=== PATIENT | female | born 1990 | race Caucasian/White ===

== ENCOUNTER 2021-11-19 07:52 | Outpatient (CLI) | payer BC, SELFPAY ==
[2021-11-19 08:07] LABS: Hematocrit 45.7 % (37.0-47.0); Mean Corpuscular HGB Conc 32.8 g/dl (32-36); Mean Corpuscular Hemoglobin 30.9 pg (26-34); Platelet Count Result 310 k/mm3 (150-375); Red Blood Count 4.86 M/mm3 (4.2-5.4); Red Cell Distribution Width 12.8 % (11.5-14.5); White Blood Count 10.4 K/mm3 (4.5-10.0)
== END 2021-11-19 07:53 | disposition home or self-care (01) ==
LOC: ANHLAB 07:56
PROVIDERS: Visit Provider Obstetrics & Gynecology Gynecologic Oncology
DX: Z30.2 Encounter for sterilization (principal)
CPT/HCPCS: 36415; 85027; 86850; 86900; 86901

== ENCOUNTER 2021-11-22 01:11 | Day surgery (SDC) | payer BC, SELFPAY ==
[2021-11-16 17:00] VITALS: BMI 31.1
--- NOTE | 2021-11-16 17:24 | PC.NURSE ---
Report to the Outpatient Waiting Room, entrance under the green pavilion located off [facility], at 1200 on 11-22-21. OR Time: 1400. - You and your visitor will be asked a series of questions to screen for COVID 19 for your protection. - Only one visitor is allowed at this time. - The patient visitor is requested to leave or wait in car when not with patient. - A mask is required within the hospital. Patients may have clear liquids (water, carbonated beverages, clear teas, apple juice) until 3 hours prior to surgery with a maximum of 20 ounces. 1100 - No food from midnight until time of surgery - Infants may have breast milk until 4 hours before surgery, infant formula 6 hours prior to surgery. - Children will be allowed to drink immediately following surgery. If applicable, please bring a bottle or sippy cup to assist with drinking. Juice, water, soda, and popsicles are readily available. For infants on formula, please bring formula the day of surgery. Pacifiers are allowed. Take the following medications with a SIP of water the morning of surgery: None Medications to discontinue per physician: vitamins and supplements Date to take last dose: 11-19-21 Please no make-up, nail lithuanian, hairspray, perfume, deodorant, or body powder the day of surgery. No jewelry (including any body piercings) or valuables the day of surgery, leave them at home. Please take a shower or bath the night before, or the morning of, surgery with an antibacterial soap. Wear comfortable, loose fitting clothing. Children are encouraged to wear pajamas. - Jewelry must be removed prior to entering the operating room. Rings and piercings that are not removed may be cut off. - The hospital will not accept responsibility for valuables. - Please leave all valuables, including medications, at home the day of surgery. If you are going home after surgery, a licensed yard driver must drive you home. - NO public transportation without another adult. - We recommend that an adult stay with you for 24 hours following discharge. - We also recommend that you do not drive, make important decision, drink alcoholic beverages, or take any drugs that were not prescribed by your health care provider for at least 24 hours after your discharge time. For Pediatric surgeries, we recommend two adults accompany the child home (only one inside the building at this time). Follow any additional instructions given to you from your surgeon. If you or anyone in your household have experienced Covid symptoms in the past week, please notify your surgeon or the nurse liaison at the phone number below for possible testing. Telephone instructions given to Elizabeth Rodriguez and asked if any additional questions and then verbalized understanding. Patient advised to call surgeon office or pre surgery nurse liaison [phone] if any additional questions.
[2021-11-22] VITALS (10 sets, daily range): BP systolic 108–135; BP diastolic 78–94; PULSE 50–83; RESP 16–22; TEMP 36.4–36.5; O2SAT 95–100
[2021-11-22] MEDS: GABAPENTIN 300 MG CAPSULE PO (11:46)
[2021-11-22] MEDS: ACETAMINOPHEN 500 MG TABLET 1000 MG PO (11:46)
--- NOTE | 2021-11-22 11:53 | PM.IMHP ---
H&P: HPI History of Present Illness Date/Time: 11/22/21 11:53 Chief Complaint: I'm here to have my tubes and Nexplanon removed Narrative: Patient here desiring permanent sterilization and removal of her Nexplanon Review of Systems Review of Systems: All systems reviewed & are unremarkable except as noted in HPI and below PMFSH Social History Social History Smoking packs per day: 0.5 Smoking cigarettes per day: 10.0 Years smoked: 10 Smoking pack-years: 5.00 Smoking status: Current every day smoker Tobacco type: cigarettes Second hand tobacco smoke exposure: No Alcohol intake: current Drinks per week: 3 Alcohol use details: beer Substance use: never Substance use type: does not use Living arrangements: with family Spiritual care concerns: No Meds Home Medications and Allergies Home Medications Medication Instructions Recorded Confirmed Type cholecalciferol (vitamin D3) 25 mcg PO DAILY 11/16/21 11/22/21 History [Vitamin D3] etonogestrel [Nexplanon] 1 implant SUBDERMAL ONCE 11/16/21 11/16/21 History multivit with min-folic acid 1 tablet PO DAILY 11/16/21 11/22/21 History [Adult One Daily Multivitamin] Allergies Allergy/AdvReac Type Severity Reaction Status Date / Time No Known Allergies Allergy Verified 11/22/21 11:42 Vital Signs Vital Signs - 24 hr 11/22/21 11:39 Temperature 36.4 C Pulse Rate 71 Respiratory Rate 16 Blood Pressure 120/79 Pulse Oximetry 100 Exam Const: General: comfortable and no acute distress Eyes: General: appearance normal, both eyes and all related structures Resp: Effort & Inspection: normal respiratory effort Auscultation: clear to auscultation bilaterally Cardio: Rate: regular rate Rhythm: regular rhythm GI: GI Palp: Yes Soft to palpation Percussion: Yes normal to percussion Auscultation: normal bowel sounds Skin: General skin exam: normal color and no rashes or lesions noted Wounds: no wounds Neuro: General: gait normal Cognition (Neuro): normal cognition Speech: normal speech Extrem: General: normal to inspection Psych: Mental Status: mental status grossly normal Affect: normal affect Assessment and Plan Assessment and plan (1) Sterilization: Code(s): Z30.2 - Encounter for sterilization Status: Acute (2) Contraceptive management: Code(s): Z30.9 - Encounter for contraceptive management, unspecified Status: Acute
--- NOTE | 2021-11-22 11:55 | WPDHPUPDATE1 ---
History and Physical Update Update Date/Time: 11/22/21 11:55 History and Physical has been reviewed, including an updated exam of the patient. There are NO changes in the patient's condition. Risks, benefits, and alternatives have been discussed and questions answered. Patient agrees to proceed with procedure.
[2021-11-22] MEDS: LACTATED RINGERS 1,000 ML 30 ML IV CONT ×2 (12:15→14:28)
--- NOTE | 2021-11-22 12:36 | P.PNAN_ITS ---
Anes - Initial Pre Proc Eval Procedure: Operation Date: 11/22/21 13:30 Proposed Procedures p Diagnostic Laparoscopy, Bilateral Salpingectomy, Nexplanon Removal - Chrissy Smith DO Date/Time: 11/22/21 12:36 Surgeon: Chrissy Smith DO Pre Op Diagnosis: desires sterilization Patient Data Age: 31 Gender: F Height: 1.78 m Weight: 96.9 kg Last Vital Signs Temp 36.4 C 11/22/21 11:39 Pulse 71 11/22/21 11:39 Resp 16 11/22/21 11:39 BP 120/79 11/22/21 11:39 Pulse Ox 100 11/22/21 11:39 Allergies Allergy/AdvReac Type Severity Reaction Status Date / Time No Known Allergies Allergy Verified 11/22/21 11:42 Home Medications Medication Instructions Recorded Confirmed Type cholecalciferol (vitamin D3) 25 mcg PO DAILY 11/16/21 11/22/21 History [Vitamin D3] etonogestrel [Nexplanon] 1 implant SUBDERMAL ONCE 11/16/21 11/16/21 History multivit with min-folic acid 1 tablet PO DAILY 11/16/21 11/22/21 History [Adult One Daily Multivitamin] Patient hx anesthesia problems: none Family hx anesthesia problems: none Results Review: All pre-operative results and documents have been reviewed as part of the pre-operative evaluation. [facility] Past Medical History Medical History Obesity Smoker Surgical History Surgical History (Updated 11/22/21 @ 12:39 by Zachary Gil MD) History of section Social History Social History Smoking packs per day: 0.5 Smoking cigarettes per day: 10.0 Years smoked: 10 Smoking pack-years: 5.00 Smoking status: Current every day smoker Tobacco type: cigarettes Second hand tobacco smoke exposure: No Alcohol intake: current Drinks per week: 3 Alcohol use details: beer Substance use: never Substance use type: does not use Living arrangements: with family Spiritual care concerns: No Anes - Eval Final PreProcedure Day of Procedure 11/22/21 12:36 Patient weight: obese Heart: regular rate and rhythm Lungs: clear to auscultation Airway: Mallampati scale class 1 Neurological: alert and oriented Last oral intake: >/= 8 hours ASA classification: II Emergent: no Anesthetic plan: proceed Anesthesia type and monitoring: general ETT and standard monitoring Results Review: All pre-operative results and documents have been reviewed as part of the pre-operative evaluation. Informed Consent: The patient's anesthetic plan and its attendant risks and benefits were discussed with the patient/family/POA. Questions were solicited and answers provided to the satisfaction of the patient/family/POA.
--- NOTE | 2021-11-22 14:00 | SUR.OPER ---
Dr Smith talked to Osmel to get verbal consent for drainage of right ovarian cyst via phone and verified per Jw Okeefe RN @[phone].
[2021-11-22] MEDS: BUPIVACAINE HCL 0.25% PF 30 ML VIAL INFILTRATE (14:30)
--- NOTE | 2021-11-22 14:37 | SUR.OPER ---
Nexplanon removal start 1437 Prep betadine swabs x3.
--- NOTE | 2021-11-22 14:49 | W.PM.PROC2 ---
Procedure Note - Detailed Date of Procedure 11/22/21 Pre-op Diagnosis desires sterilization Post-op Diagnosis Other (pelvic adhesions, right ovarian cyst) Procedure Performed Diagnostic laparoscopy, bilateral salpingectomy, lysis of adhesions, drainage of right ovarian cyst, Nexplanon removal. Surgeon Chrissy Smith DO Patient Financial Advocate Andrea Anesthesia General Indications Desires sterilization Findings There were omental adhesions from below the umbilicus down to the fundus of the uterus. The anterior uterine wall was ahesed to the abdominal wall from the fundus all the way down to the bladder. The left tube was adhered anteriorly and superiorly over the broad ligament by filmy adhesions. The right ovary contained a large simple cyst. The posterior cul-de-sac and bowels appeared unremarkable. Description of Procedure The patient was taken to the operating room where she was placed under general anesthesia. She was prepped and draped in the normal sterile fashion in a dorsal lithotomy position. No preoperative antibiotics were indicated. A time-out was performed. The skin above the umbilicus was grasped with 2 penetrating towel clamps and was injected with local. The skin was then incised and a Veress needle was introduced. The saline water drop test was performed. CO2 insufflation was started and the abdomen was brought up to a filling pressure of 15 mm Hg. The Veress needle was then replaced with a 5 mm Optiview trocar which was inserted under direct visualization. Survey of the abdomen revealed no evidence of bowel or vascular injury upon entry but there were was a large omental adhesion that extended from just lateral to the umbilical port down to the fundus of the uterus. This adhesion appeared to contain only fatty omental tissue and no bowel. The patient was placed in steep Trendelenburg position. The right lower quadrant trocar site was injected and incised. A 5 mm trocar was inserted under direct visualization. The camera was then moved to the right lower quadrant port and left lower quadrant site was identified, injected and incised. Another 5 mm trocar was introduced under direct visualization lateral to where the omental adhesion was. The LigaSure was then used to remove the omental adhesion from the anterior abdominal wall using blunt and sharp dissection. The fundus of the uterus was densely adherent to the abdominal wall and the omentum, this area became oozy and was cauterized using the monopolar hook of the LigaSure device. Surgiflo powder was applied an area was noted to be hemostatic. As mentioned above the left tube was adhesed across the anterior portion of the broad ligament by filmy adhesions. These were taken down and the left tube was freed. The tube was then elevated cauterized and transected off using LigaSure and passed off through the public services assistant port. This was repeated in identical fashion on the right-hand side. The right tube was then handed off. On the right side there is noted to be a large cyst, approximately 4-5 cm on the right ovary. With the patient's was notified that surgery was beginning I mentioned to the cyst to him and requested permission to drain it. He gave verbal consent for right ovarian cyst drainage. The monopolar hook of the LigaSure was then used to open the cyst wall, clear fluid was noted. The cyst was drained successfully. I reinspected the area of dense adhesions from the uterus to the anterior abdominal wall in this area. Hemostatic, additional Surgiflo powder was placed as reassurance but no active blood flow was noted. All fluid and blood clots were suctioned out of the abdomen and pelvic cavity. All instruments and trocars were removed from the abdomen and the CO2 and patient was allowed to escape. Her abdominal incisions were closed with subcuticular 4-0 Monocryl and covered with Dermabond. I then proceeded to the portion of the procedure to remove the Nexplanon. The [place]
[2021-11-22] MEDS: fentaNYL CITRATE INJ (*CRX) 100 MCG/2 ML VIAL 25 MCG IV PUSH ×4 (15:24→16:32)
[2021-11-22] MEDS: oxyCODONE HCL (*CRX) 5 MG TAB IR PO (16:41)
[2021-11-22] MEDS: ONDANSETRON INJ 4 MG/2 ML VIAL IV PUSH (16:58)
== END 2021-11-22 17:19 | disposition home or self-care (01) ==
PROVIDERS: Visit Provider Obstetrics & Gynecology Gynecologic Oncology
PROC: (CPT 49320; principal; 2021-11-22 13:30)
DX: Z30.2 Encounter for sterilization (principal); N73.6 Female pelvic peritoneal adhesions (postinfective); N83.201 Unspecified ovarian cyst, right side; Z30.49 Encounter for surveillance of other contraceptives; F17.210 Nicotine dependence, cigarettes, uncomplicated; E66.9 Obesity, unspecified; Z68.30 Body mass index [BMI] 30.0-30.9, adult
CPT/HCPCS: 58661; 11982; 58662; 88302; A9270; J0330; J1100; J2250; J2405; J2704; J3010; J7120